=== PATIENT | female | born 1940 | race Caucasian/White ===

== ENCOUNTER 2016-12-30 08:02 | Day surgery (SDC) | payer MEDICARE, BC ==
[2016-12-28 08:58] VITALS: BMI 39.1
[~2016-12-30 08:02] MED LIST: LACTATED RINGERS 1,000 ML IV SCH
[2016-12-30] MEDS ORDERED: LIDOCAINE 1% 20 ML VIAL (10MG/ML) FOR IV START SQ ONE (08:20)
[2016-12-30 08:21] VITALS: RESP 16; TEMP 98
[2016-12-30] MEDS ORDERED: PROPOFOL 10 MG/ML 20 ML VIAL IV ONE (09:26)
[2016-12-30] MEDS ORDERED: LIDOCAINE 1% INJ 10MG/ML (20 ML MDV) ONE (09:26)
--- NOTE | 2016-12-30 10:01 | P.PCN ---
Date of Procedure: 12/30/16 Procedure(s) Performed: Procedure: Esophagogastroduodenoscopy and biopsy and esophageal dilation using the Microvasive jddgwbt-qkd-pykse balloon dilator up to 15 mm. Preoperative diagnosis: Dysphagia and abnormal barium swallow. Postoperative diagnosis: 1. Hiatal hernia and benign-appearing nonobstructing stricture dilated to 15 mm. 2. Mild antral gastritis. 3. Multiple biopsies obtained from the duodenum, antrum and esophagus. Preparation and sedation: Was provided by anesthesia. Brief clinical history: The patient is a 76-year-old female with intermittent difficulties swallowing that she had had for the last year or 2. Apparently it was worse over the last 3-4 months. She had a barium study and ENT evaluation as well as speech therapy evaluation. I saw her in the office referred because of finding of mild fixed narrowing at the GE junction. She has no weight loss or other alarm symptoms. This evaluation is to assess for esophageal stricture or other pathology. Procedure: With the patient on her left lateral decubitus position and after informed consent and adequate sedation, I passed the Olympus-GIF 160 video upper endoscope through the cricopharyngeus down the esophagus. GE junction was around 36 cm from the incisors and at the level there was a short benign appearing stricture that did not impede advancement of the endoscope. There was a 2 cm sliding hiatal hernia then the endoscope was passed into the stomach which was insufflated with air and inspected in detail including the retroflex view in the cardia. There was mottling and erythema in the antrum but no ulcers or erosions. Pyloric channel, duodenal bulb, post bulbar area and descending duodenum appeared within normal limits. Because of her symptoms I obtained biopsies from the duodenum, antrum and esophagus. I also proceeded to dilate the esophageal stricture. I passed the Microvasive blyevde-uvi-rmczq balloon dilator size 12-15 mm through the operating channel of the endoscope and centered dictated at the level of the stricture and inflated it in a stepwise fashion. It appeared that at 15 mm we accomplished satisfactory dilation. The patient tolerated the procedure well. Plan: The patient was reassured. Will await pathology results. Consideration can be given for further dilation if she continues to be symptomatic and especially if there is nutritional compromise. I would keep you updated on her progress.
[2016-12-30 10:35] VITALS: BP 140/76; PULSE 60
== END 2016-12-30 10:47 | disposition home or self-care (01) ==
LOC: ORWHC2ENDO 08:02
DX: K22.2 Esophageal obstruction (principal); R13.10 Dysphagia, unspecified; K44.9 Diaphragmatic hernia without obstruction or gangrene; K29.50 Unspecified chronic gastritis without bleeding; K21.0 Gastro-esophageal reflux disease with esophagitis; I10 Essential (primary) hypertension; J44.9 Chronic obstructive pulmonary disease, unspecified; E07.9 Disorder of thyroid, unspecified; H40.9 Unspecified glaucoma; Z79.82 Long term (current) use of aspirin; Z79.899 Other long term (current) drug therapy
CPT/HCPCS: 88305; 88342; 43239; 43249; J2001; J2704; C1726; 99153

== ENCOUNTER → 2017-10-06 | Outpatient (CLI) | payer MEDICARE, BC ==
--- NOTE | 2017-10-10 10:13 | MM ---
Reason for exam: screening (asymptomatic). Last mammogram was performed 1 year ago. History: Patient is postmenopausal. Family history of breast cancer in maternal aunt at age 75 and breast cancer in paternal cousin at age 50. Took estrogen for 10 years. Physical Findings: A clinical breast exam by your physician is recommended on an annual basis and results should be correlated with mammographic findings. MG 3D Screening Mammo W/Cad Bilateral CC, MLO, and XCCL view(s) were taken. Prior study comparison: October 05, 2016, bilateral MG screening mammo w CAD. August 21, 2015, bilateral MG screening mammo w CAD. There are scattered fibroglandular densities. No significant changes when compared with prior studies. ASSESSMENT: Benign, BI-RAD 2 RECOMMENDATION: Routine screening mammogram of both breasts in 1 year.
== END | disposition home or self-care (01) ==
LOC: RADMAMWWP 08:51
PROVIDERS: ATTEND Family Medicine
DX: Z12.31 Encounter for screening mammogram for malignant neoplasm of breast (principal)
CPT/HCPCS: 77063; G0202

== ENCOUNTER → 2018-05-18 | Outpatient (CLI) | payer MEDICARE, BC ==
--- NOTE | 2018-05-18 11:19 | XR ---
EXAMINATION TYPE: XR lumbar spine 2 or 3V DATE OF EXAM: 05/18/2018 COMPARISON: NONE HISTORY: Sciatica TECHNIQUE: Three-view lumbar spine FINDINGS: There 5 lumbar-type vertebral bodies. L1 pedicles are intact. L2 pedicles appear intact. Th ere is poor visualization of the right L3 pedicle which may be positional due to the scoliosis. L4 pe dicles appear intact. L5 pedicles are not well visualized. There is degenerative disc changes throughout the lumbar spine. Vacuum disc phenomenon is present L2- L3 L3-L4. Disc space narrowing is present throughout the lumbar spine. Mild superior endplate changes L1 may be present. Anterior vertebral body height loss is not evident. There is increased sclerosis at the scoliosis along the right L2-L3 space. IMPRESSION: 1. Moderately advanced degenerative disc changes throughout the lumbar spine. 2. Scoliosis. 3. MRI could be performed if closer evaluation would be of benefit.
== END | disposition home or self-care (01) ==
LOC: RADXRMAIN 10:34
PROVIDERS: ATTEND Family Medicine
DX: M47.816 Spondylosis without myelopathy or radiculopathy, lumbar region (principal); M41.86 Other forms of scoliosis, lumbar region
CPT/HCPCS: 72100

== ENCOUNTER → 2018-06-13 | Outpatient (CLI) | payer BC, MEDICARE ==
--- NOTE | 2018-06-13 10:18 | MR ---
EXAMINATION TYPE: MR lumbar spine wo con DATE OF EXAM: 06/13/2018 COMPARISON: Plain film 05/18/2018 HISTORY: Intervertebral disc degeneration, lumbar TECHNIQUE: Multiplanar, multisequence images of the lumbar spine were acquired. L1-L2: Posterior broad-based disc bulge causes anterior mass effect on the thecal sac, mild spinal st enosis. No significant foraminal encroachment. There is facet arthropathy change. L2-L3: Posterior br oad-based disc bulge causes anterior mass effect on the thecal sac. There is facet arthropathy change present. Circumferential extension of endplate disc complex results in foraminal encroachment greate r on the right. On mild spinal stenosis. L3-L4: Posterior broad-based disc bulge causes anterior mass effect on the thecal sac but only mild s peggy stenosis. Facet arthropathy with fragility ligamentum flavum encroaches on the lateral recesses . Circumferential extension endplate disc complex results in some foraminal encroachment greater on t he left than on the right. L4-L5: Small posterior central disc bulge contacts anterior thecal sac and possibly the proximal L5 n erve roots. Only mild spinal stenosis. Facet arthropathy with fragility ligamentum flavum flavum encroaches on the lateral recesses. Lateral extension endplate disc complex results in foraminal encroachment on the left. Cortical cysts are as sociated with the kidneys. Retroaortic left renal vein is noted. L5-S1: Posterior extension of endplate disc complex extends circumferentially encroach on the neural foramina greater on the left than on the right, there is facet arthropathy. No significant spinal ruth nosis. Lumbar segments are intact. No paraspinal masses are identified. Conus medullaris has a normal appe arance. There is a spinal curvature. Multilevel spondylosis is present with endplate discogenic marro w signal change, there is loss of disc height signal at intervertebral levels with associated vacuum phenomenon. IMPRESSION: Scoliosis, degenerative disc disease, facet arthropathy and multilevel foraminal encroachment. Additi onal findings above.
== END | disposition home or self-care (01) ==
LOC: RADMRIMAIN 09:13
PROVIDERS: ATTEND Family Medicine
DX: M48.061 Spinal stenosis, lumbar region without neurogenic claudication (principal); M51.26 Other intervertebral disc displacement, lumbar region; M51.36 Other intervertebral disc degeneration, lumbar region; M47.816 Spondylosis without myelopathy or radiculopathy, lumbar region; M46.86 Other specified inflammatory spondylopathies, lumbar region; M41.86 Other forms of scoliosis, lumbar region
CPT/HCPCS: 72148

== ENCOUNTER → 2018-10-10 | Outpatient (CLI) | payer MEDICARE ==
--- NOTE | 2018-10-12 10:36 | MM ---
Reason for exam: screening (asymptomatic). Last mammogram was performed 1 year ago. History: Patient is postmenopausal. Family history of breast cancer in maternal aunt at age 75 and breast cancer in paternal cousin at age 50. Took estrogen for 10 years. MG 3D Screening Mammo W/Cad Bilateral CC and MLO view(s) were taken. Prior study comparison: October 06, 2017, bilateral MG 3d screening mammo w/cad. October 05, 2016, bilateral MG screening mammo w CAD. There is a density with calcifications in the left breast equal oval margins in the lower outer middle position approximatly 7 cm from the nipple. Finding is new when compared to: 10/06/17 images. ASSESSMENT: Incomplete: need additional imaging evaluation, BI-RAD 0 RECOMMENDATION: Special view mammogram of the left breast.
== END | disposition home or self-care (01) ==
LOC: RADMAMWWP 13:17
PROVIDERS: ATTEND Family Medicine
DX: Z12.31 Encounter for screening mammogram for malignant neoplasm of breast (principal)
CPT/HCPCS: 77063; 77067

== ENCOUNTER → 2018-11-17 | Outpatient (CLI) | payer MEDICARE ==
--- NOTE | 2018-11-23 09:04 | MM ---
Reason for exam: additional evaluation requested from abnormal screening. Last mammogram was performed 1 month ago. History: Patient is postmenopausal. Family history of breast cancer in maternal aunt at age 75 and breast cancer in paternal cousin at age 50. Took estrogen for 10 years. Physical Findings: Nurse did not find any significant physical abnormalities on exam. MG 3D Work Up W/Cad LT CC with magnification, LM with magnification, and LM view(s) were taken of the left breast. Prior study comparison: October 10, 2018, bilateral MG 3d screening mammo w/cad. October 06, 2017, bilateral MG 3d screening mammo w/cad. The breast tissue is heterogeneously dense. This may lower the sensitivity of mammography. There is a round circumscribed lower outer quadrant mass 7cm from nipple with punctate rounded calcifications on CC that appear to layer on ML magnification view. Confirmation ultrasound will be performed. These results were verbally communicated with the patient and result sheet given to the patient on 11/17/18. ASSESSMENT: Incomplete: need additional imaging evaluation, BI-RAD 0 RECOMMENDATION: Ultrasound of the left breast.
--- NOTE | 2018-11-23 09:09 | USB ---
Reason for exam: additional evaluation requested from abnormal screening. History: Patient is postmenopausal. Family history of breast cancer in maternal aunt at age 75 and breast cancer in paternal cousin at age 50. Took estrogen for 10 years. US Breast Workup Limited LT Left limited breast ultrasound including focal area of concern, retroareolar and axilla demonstrates a 0.7 x 0.5 x 0.4cm solid, hyperechoic lesion at 3 o'clock, lipoma incidentally seen. These results were verbally communicated with the patient and result sheet given to the patient on 11/17/18. ASSESSMENT: Probably benign, BI-RAD 3 RECOMMENDATION: Follow-up diagnostic mammogram of the left breast in 6 months. (likely cyst with milk of calcium)
== END | disposition home or self-care (01) ==
LOC: RADMAMWWP 13:23
PROVIDERS: ATTEND Family Medicine
DX: R92.8 Other abnormal and inconclusive findings on diagnostic imaging of breast (principal)
CPT/HCPCS: 77065; 76642; G0279; 77061

== ENCOUNTER → 2018-12-14 | Outpatient (CLI) | payer MEDICARE ==
--- NOTE | 2018-12-14 14:02 | BD ---
EXAMINATION TYPE: Axial Bone Density DATE OF EXAM: 12/14/2018 COMPARISON: 10.05.2016 CLINICAL HISTORY: 78 YR OLD FEMALE....ICD-10 CODE: V49.81 POST MENOPAUSAL STATUS Height: 65.4 Weight: 258 FRAX RISK QUESTIONS: Secondary Osteoporosis: YES 3. Menopause before 45: YES, AT AGE 45 RISK FACTORS HISTORY OF: Postmenopausal woman: TOTAL HYST AT AGE 45 YRS MEDICATIONS: Thyroid Medications: YES, SYNTHROID FOR ABOUT 30 + YRS Additional Medications: BP MEDS, DULOXETINE, MULTIVITAMIN, STATIN FOR CHOLESTEROL, REFLUX MEDS Additional History: HYPERTENSION, ANXIETY, CHOLESTEROL, GURD EXAM MEASUREMENTS: Bone mineral densitometry was performed using the Prol[employer] Software System. Bone mineral density as measured about the Lumbar spine is: ----- L1-L4(G/cm2): 1.560 T Score Values are as follows: ----- L1: 1.4 ----- L2: 3.8 ----- L3: 5.3 ----- L4: 1.8 ----- L1-L4: 3.2 Bone mineral density has: Increased 8.0% since study of: 10.05.2016 Bone mineral density about the R hip (g/cm2): 1.025 Bone mineral density about the L hip (g/cm2): 0.939 T Score values are as follows: -----R Neck: 0.2 -----L Neck: -1.0 -----R Total: 0.1 -----L Total: -0.5 Bone mineral density has: Increased 3.8% since study of: 10.05.2016 FRAX%s: THERE IS A 9.3% CHANCE FOR A MAJOR OSTEOPOROTIC FX AND A 1.5% FOR HIP....PROBABILITY OF FX IN 10 YRS TIME IMPRESSION: Osteopenia (T Score between -2.5 and -1). There is slightly increased risk of fracture and the patient may be considered for treatment. Re-Screen 2-5 years. NOTE: T-SCORE=SD OF THE YOUNG ADULT MEAN.
== END | disposition home or self-care (01) ==
LOC: RADBDWWP 10:23
PROVIDERS: ATTEND Family Medicine
DX: M85.80 Other specified disorders of bone density and structure, unspecified site (principal); Z78.0 Asymptomatic menopausal state
CPT/HCPCS: 77080

== ENCOUNTER → 2019-01-03 | Outpatient (CLI) | payer MEDICARE ==
--- NOTE | 2019-01-03 17:42 | CT ---
EXAMINATION TYPE: CT abdomen pelvis w con DATE OF EXAM: 01/03/2019 COMPARISON: None INDICATION: Change in bowel habits. DLP: 1880.4 mGycm, Automated exposure control for dose reduction was used. CONTRAST: 100ml mL of Isovue 300. Study performed with Oral Contrast TECHNIQUE: Axial images were obtained from above the diaphragm to the pubic rami in the axial plane a t 5 mm thick sections. Reconstructed images are reviewed on the computer in the coronal plane. FINDINGS: Limited CT sections are obtained the lung bases. The lung bases are clear. CT ABDOMEN: Liver: Normal Spleen: Normal Pancreas: Normal Adrenal glands: The adrenal glands are normal. Gallbladder: Surgically absent Kidneys: No masses are evident. No hydronephrosis is present. Small cortical renal cysts are presen t within the bilateral kidneys. Delayed images were obtained through the kidneys, which remain unrem arkable. Aorta: Normal Inferior vena cava: Normal. CT PELVIS: Loops of bowel within the abdomen and pelvis are normal. There are loops of bowel which are incom pletely distended or lack oral contrast limiting their evaluation. Scattered diverticuli without acut e diverticulitis are within the sigmoid colon. Appendix: Not visualized. No suspicious inflammatory changes are identified in the right lower quadra nt. Urinary bladder: Decompressed and cannot be evaluated Genitourinary structures: Uterus and ovaries are not identified. Osseous structures: No suspicious lytic or sclerotic lesions. Sacroiliac joint degenerative changes a re present. Some spondylosis is within the lumbar thoracic spine. IMPRESSIONS: 1. No acute abnormality to account for change in bowel habits. 2. Diverticulosis without acute diverticulitis.
== END | disposition home or self-care (01) ==
LOC: RADCTMAIN 13:24
DX: K57.90 Diverticulosis of intestine, part unspecified, without perforation or abscess without bleeding (principal)
CPT/HCPCS: 82565; 84520; 74177; 36415; Q9967

== ENCOUNTER → 2019-01-18 | Outpatient (CLI) | payer MEDICARE ==
[2019-01-18 15:47] VITALS: BP 141/76; PULSE 61; RESP 18; TEMP 97.6; BMI 41.1
--- NOTE | 2019-01-18 16:16 | P.GSHP ---
History of Present Illness H&P Date: 01/18/19 Chief Complaint: abnormal mammogram Annmarie is a 78-year-old white female who underwent a routine mammogram on 10-12-18. After this study was recommended that she undergo a additional views of the left breast secondary to a density with calcifications in the left blast the repeat left breast mammogram was performed 1220 118. This revealed a round circumscribed lower outer quadrant mass 7 cm from the nipple and punctate rounded calcifications that appear to layer on the ML mag view. An ultrasound was therefore recommended and the ultrasound was performed on 1220 118 as well. On the ultrasound was felt to be a probable benign BIRADS 3 lesion and follow-up diagnostic mammogram of the left breast in 6 months time was recommended. The patient does not feel anything of concern in her breasts. She denies any nipple discharge or skin changes of concern. She has no history of any trauma or infection in the past. Family history: 1. Maternal aunt: Breast cancer 2. Father: Lung cancer 3. 3 paternal uncles: Prostate cancer Hormonal History: menarche: 11 : 3, 3 children, fiirst at 22, breast fed: yes menopause: hysterctomy at 45 for fibroidstook ovaries BCP: none hormones: patch 4 years Past surgical history: 1. Total abdominal hysterectomy 2. Cholecystectomy 3. Toe surgery Past medical history: 1.diverticulosis 2. IBS Social History: smoke: none at this time smoked for 10 years 1/PPD in the past alcohol: none drugs: none - Constitutional Constitutional: Denies chills, Denies fever - EENT Comment: glaucoma Eyes: denies blurred vision, denies pain Ears: deny: decreased hearing, tinnitus Ears, nose, mouth and throat: Denies headache, Denies sore throat - Breasts Breasts: bilateral: as per HPI - Cardiovascular Comment: ? valvular change not need treatment Cardiovascular: Reports high blood pressure - Respiratory Comment: COPD Respiratory: Denies cough, Denies 7 - Gastrointestinal Comment: IBS Gastrointestinal: Reports constipation, Reports diarrhea, Denies abdominal pain , Denies nausea, Denies vomiting - Genitourinary (Female) Genitourinary: Denies dysuria, Denies hematuria - Menstruation Menstruation: Reports postmenopausal - Musculoskeletal Comment: arthritis in back - Integumentary Integumentary: Denies pruritus, Denies rash - Neurological Neurological: Reports weakness, Denies numbness - Psychiatric Psychiatric: Reports anxiety, Reports depression - Endocrine Endocrine: Denies fatigue, Denies weight change - Hematologic/Lymphatic Comment: aspirin - Allergic/Immunologic Allergic/Immunologic: Reports as per HPI Past Medical History Past Medical History: COPD, GERD/Reflux, Hyperlipidemia, Hypertension, Osteoarthritis (OA), Thyroid Disorder Additional Past Medical History / Comment(s): GLAUCOMA History of Any Multi-Drug Resistant Organisms: None Reported Past Surgical History: Cholecystectomy, Hysterectomy Past Anesthesia/Blood Transfusion Reactions: No Reported Reaction Past Psychological History: Anxiety, Depression Smoking Status: Former smoker Past Alcohol Use History: None Reported Additional Past Alcohol Use History / Comment(s): STARTED SMOKING AT AGE 20 QUIT 1996 SMOKED 1PPD Past Drug Use History: None Reported - Past Family History Mother Family Medical History: Deep Vein Thrombosis (DVT) Father Family Medical History: Cancer Medications and Allergies Home Medications Medication Instructions Recorded Confirmed Type Aspirin 81 mg PO DAILY 12/09/16 01/18/19 History Atorvastatin [Lipitor] 20 mg PO HS 12/09/16 01/18/19 History DULoxetine HCL [Cymbalta] 30 mg PO DAILY 12/09/16 01/18/19 History Gabapentin [Neurontin] 300 mg PO TID 12/09/16 01/18/19 History Levothyroxine Sodium [Synthroid] 88 mcg PO DAILY 12/09/16 01/18/19 History Losartan Potassium [Cozaar] 100 mg PO DAILY 12/09/16 01/18/19 History Omeprazole [PriLOSEC] 40 mg PO DAILY 12/09/16 01/18/19 History Rivastigmine Tartrate 3 mg PO BID 12/09/16 01/18/19 History [Rivastigmine] Multivit with Calcium,Iron,Min 1 each PO DAILY 12/28/16 01/18/19 History [Women's Multivitamin] Allergies Allergy/AdvReac Type Severity Reaction Status Date / Time nickel Allergy Rash/Hives Verified 01/18/19 15:31 Surgical - Exam Vital Signs Temp Pulse Resp BP Pulse Ox 97.6 F 61 18 141/76 96 01/18/19 15:39 01/18/19 15:39 01/18/19 15:39 01/18/19 15:39 01/18/19 15:39 BMI 41.2 - General obese - Eyes normal ocular movement - ENT no hearing loss, no congestion - Neck no masses, trachea midline - Respiratory normal respiratory effort, clear to auscultation - Cardiovascular Rhythm: regular Heart Sounds: normal: S1, S2 - Abdomen Abdomen: soft, non tender, no guarding, no rigid, no rebound - Integumentary normal turgor - Musculoskeletal normal gait, normal posture - Psychiatric oriented to time, oriented to person, oriented to place, speech is normal, memory intact Breast examination: Right breast: Multi-positional exam no dominant masses or nodules of concern, fibrocystic changes Right axilla: No adenopathy of concern Left breast: Multi-positional exam no dominant masses or nodules of concern, fibrocystic changes Left axilla: No adenopathy of concern Results Results of mammogram, repeat left breast diagnostic mammogram, and left breast ultrasound reviewed Assessment and Plan Assessment: Impression: 1. Fibrocystic breast changes 2. Radiographic abnormality left breast, calcifications on mammogram 3. Probable lipoma on ultrasound. Repeat radiographs in 6 months 4. Obesity 5. Irritable bowel syndrome 6. Anxiety/depression Plan: 1. Repeat left breast mammogram and ultrasound in 6 months 2. Medical management of medical conditions [place] risk assessment evaluation was performed. 5 uterus is 1.7% of developing breast cancer lifetime risk is 3.3%. Cc: Dr. Issac Andrade, Kateryna Isaac
== END | disposition home or self-care (01) ==
LOC: WWCWWP 14:52
PROVIDERS: ATTEND Surgery
DX: Z53.9 Procedure and treatment not carried out, unspecified reason (principal)

== ENCOUNTER → 2019-05-15 | Outpatient (CLI) | payer MEDICARE ==
[~2019-05-15] MED LIST changes: -LACTATED RINGERS 1,000 ML IV SCH; +REGADENOSON 0.4 MG/5 ML SYRINGE IV ONE
--- NOTE | 2019-05-15 12:23 | NM ---
"EXAMINATION TYPE: NM stress lexiscan cardiolite DATE OF EXAM: 05/15/2019 COMPARISON: NONE HISTORY: Chest pain and hypertension TECHNIQUE: After the intravenous administration of 10.14 mCi Tc 99m Sestamibi - Cardiolite resting S PECT images acquired 45 minutes post injection. The patient received 0.4mg Lexiscan, 25.5 mCi Tc 99m Sestamibi - Stress images obtained [address] injection FINDINGS: Review of stress and rest SPECT images demonstrates mild decreased radio pharmaceutical uptake along the anteroapical left ventricle on stress as compared to rest images. Gated analysis shows normal wal l motion with an estimated left ventricular ejection fraction of 61 %. IMPRESSION: Pharmacologically induced left ventricular myocardial ischemia. A Yellow level critical message alert has been initiated for Issac Andrade MD via the [employer] 0 | Critical Results System on 05/15/2019 12:20 PM. This message alert has been sent to Issac Andrade MD via the preferences provided by the clinician for the receipt of Radiology Critical Findings. Oh ssage ID [id number]."
--- NOTE | 2019-05-15 13:34 | EST ---
EXERCISE STRESS DATE OF SERVICE: 05/15/2019 AGE: 78 SEX: Female HT: 5'6-/2" WT: 250 pounds PROTOCOL: Lexiscan Cardiolite STAGE: DURATION OF EXERCISE: HEART RATE REST: 57 BLOOD PRESSURE REST: 140/79 MAXIMUM HEART RATE ACHIEVED: 86 MAXIMUM BLOOD PRESSURE: 163/88 85% MPHR: 122 100% MPHR: 143 METS: INDICATIONS: Chest pain. CLINICAL INFORMATION: Baseline rhythm is sinus mechanism, rate 57, normal axis and intervals. Normal electrocardiogram. Rare PVCs were noted. Baseline blood pressure 140/79 mmHg. Patient received an injection of Lexiscan. Electrocardiograph monitoring revealed no evidence of diagnostic ischemic ST deviation. Cardiolite was injected per protocol. CONCLUSION: 1. Nondiagnostic electrocardiograph stress testing. 2. Nuclear images will be reported separately. MMODL / IJN: [id number] /
== END | disposition home or self-care (01) ==
LOC: RADNMMAIN 07:54
PROVIDERS: ATTEND Family Medicine
DX: I25.9 Chronic ischemic heart disease, unspecified (principal)
CPT/HCPCS: 93017; 78452; A9500; J2785

== ENCOUNTER 2019-05-28 01:09 | Emergency (ER) | payer MEDICARE ==
[2019-05-28 01:14] VITALS: TEMP 98.6
[2019-05-28] MEDS ORDERED: SODIUM CHLORIDE 0.9% 1,000 ML IV STA (01:28)
[2019-05-28] MEDS ORDERED: ASPIRIN 81 MG PO STA (01:28)
--- NOTE | 2019-05-28 01:31 | ED ---
General Adult HPI - General Chief complaint: Neuro Symptoms/Deficit Stated complaint: Left Arm Pain Time Seen by Provider: 05/28/19 01:22 Source: patient Mode of arrival: ambulatory Limitations: no limitations - History of Present Illness Initial comments: Annmarie is a very pleasant 78-year-old female with a past medical history of known degenerative disc disease who presents the emergency department today for evaluation of tingling pain in her left shoulder radiating down to her left pinky finger. Patient reports she is recently began following with a material worker and is scheduled to have an outpatient stress test. She states that throughout the day today she saw some tightness in her neck and tingling down her left shoulder into her left pinky fingers. She cannot identify any exacerbating or relieving factors. This discomfort has been present throughout the day today. She's not had any chest pain, chest pressure or shortness of breath. Patient reports that she went to bed tonight she began thinking about it became concerned that perhaps left shoulder pain or arm pain could actually be related to the heart she decided to come to the ER for evaluation. Patient has no known history of coronary artery disease or heart failure. Her symptoms are not exertional are not relieved with rest. - Related Data Home Medications Medication Instructions Recorded Confirmed Aspirin 81 mg PO DAILY 12/09/16 01/18/19 Atorvastatin [Lipitor] 20 mg PO HS 12/09/16 01/18/19 DULoxetine HCL [Cymbalta] 30 mg PO DAILY 12/09/16 01/18/19 Gabapentin [Neurontin] 300 mg PO TID 12/09/16 01/18/19 Levothyroxine Sodium [Synthroid] 88 mcg PO DAILY 12/09/16 01/18/19 Losartan Potassium [Cozaar] 100 mg PO DAILY 12/09/16 01/18/19 Omeprazole [PriLOSEC] 40 mg PO DAILY 12/09/16 01/18/19 Rivastigmine Tartrate 3 mg PO BID 12/09/16 01/18/19 [Rivastigmine] Multivit with Calcium,Iron,Min 1 each PO DAILY 12/28/16 01/18/19 [Women's Multivitamin] Allergies Allergy/AdvReac Type Severity Reaction Status Date / Time nickel Allergy Rash/Hives Verified 01/18/19 15:31 Review of Systems ROS Statement: Those systems with pertinent positive or pertinent negative responses have been documented in the HPI. ROS Other: All systems not noted in ROS Statement are negative. Past Medical History Past Medical History: COPD, GERD/Reflux, Hyperlipidemia, Hypertension, Osteoar thritis (OA), Thyroid Disorder Additional Past Medical History / Comment(s): GLAUCOMA History of Any Multi-Drug Resistant Organisms: None Reported Past Surgical History: Cholecystectomy, Hysterectomy Past Anesthesia/Blood Transfusion Reactions: No Reported Reaction Past Psychological History: Anxiety, Depression Smoking Status: Former smoker Past Alcohol Use History: None Reported Past Drug Use History: None Reported - Past Family History Mother Family Medical History: Deep Vein Thrombosis (DVT) Father Family Medical History: Cancer General Exam - General Exam Comments Initial Comments: Physical Exam GENERAL: Patient is well-developed and well-nourished. Patient is nontoxic and well- hydrated and is in no distress. HENT: Normocephalic, Atraumatic. EYES: PERRL, EOMI PULMONARY: Unlabored respirations. No audible rales rhonchi or wheezing was noted. CARDIOVASCULAR: There is a regular rate and rhythm without any murmurs gallops or rubs. ABDOMEN: Soft and nontender with normal bowel sounds. SKIN: Skin is clear with no lesions or rashes and otherwise unremarkable. : Deferred NEUROLOGIC: Patient is alert and oriented x3. Moving all extremities spontaneously CN II-XII grossly intact NIH 0 Normal strength of bilateral upper and lower extremities MUSCULOSKELETAL: Normal extremities with adequate strength and full range of motion. No lower extremity swelling or edema. No calf tenderness. PSYCHIATRIC: Situational anxiety Limitations: no limitations Course Vital Signs 05/28/19 05/28/19 05/28/19 01:10 01:49 01:50 Temperature 98.6 F Pulse Rate 57 L 54 L Respiratory 18 21 18 Rate Blood Pressure 141/68 O2 Sat by Pulse 97 92 L 90 L Oximetry 05/28/19 05/28/19 05/28/19 02:00 02:10 02:20 Temperature Pulse Rate 49 L 51 L Respiratory 20 18 Rate Blood Pressure 145/55 O2 Sat by Pulse 94 L 93 L Oximetry 05/28/19 05/28/19 05/28/19 02:30 02:40 02:50 Temperature Pulse Rate 50 L 51 L 50 L Respiratory 14 26 H 16 Rate Blood Pressure O2 Sat by Pulse 94 L 94 L 94 L Oximetry 0705/28/19 05/28/19 03:00 03:10 03:20 Temperature Pulse Rate 49 L 52 L 50 L Respiratory 10 L 15 21 Rate Blood Pressure 89/74 89/74 O2 Sat by Pulse 94 L 94 L 94 L Oximetry 05/28/19 05/28/19 05/28/19 03:30 03:40 03:50 Temperature Pulse Rate 50 L 49 L 51 L Respiratory 18 14 16 Rate Blood Pressure 89/74 89/74 89/74 O2 Sat by Pulse 93 L 94 L 94 L Oximetry 05/28/19 05/28/19 04:00 04:14 Temperature Pulse Rate 54 L 80 Respiratory 16 16 Rate Blood Pressure 128/76 128/76 O2 Sat by Pulse 95 100 Oximetry EKG Findings - EKG Comments: EKG Findings:: EKG was obtained due to complaint of chest pain, EKG was obtained at 1:45 AM, rate is 53 rhythm is sinus bradycardia, there is leftward axis there are prolonged VT with a VT of 218, QRS 92, QTc is [address] elevations or depressions no evidence of acute ischemia or infarction. Medical Decision Making - Medical Decision Making The patient was seen and evaluated upon arrival the emergency department A 78-year-old female who presents with tingling down her left arm is been present all day. Patient does have a history of degenerative disc disease in the neck but has never experienced and neuropathy in the past Patient is concerned because she is scheduled to have outpatient cardiac testing is concerned that this may be related to her heart She was nonischemic Labs are unremarkable troponin was negative considering that symptoms of been persistent for greater than 12 hours and troponin remains negative I do not feel this is cardiac in nature Have a very high suspicion the patient's degenerative disc disease and chronic arthritis in her neck is causing some spurring and neuropathy. Advised patient to follow up with her primary care physician or surgeon. All questions pertaining care were answered return parameters were discussed patient was discharged home in stable condition - Lab Data Result diagrams: 05/28/19 01:56 05/28/19 01:56 Lab Results 05/28/19 05/28/19 05/28/19 Range/Units 01:56 01:56 01:56 WBC 6.7 (3.8-10.6) k/uL RBC 3.91 (3.80-5.40) m/uL Hgb 12.2 (11.4-16.0) gm/dL Hct 36.0 (34.0-46.0) % MCV 91.9 (80.0-100.0) fL MCH 31.3 (25.0-35.0) pg MCHC 34.0 (31.0-37.0) g/dL RDW 12.8 (11.5-15.5) % Plt Count 234 (150-450) k/uL Neutrophils % 42 % Lymphocytes % 40 % Monocytes % 5 % Eosinophils % 8 % Basophils % 1 % Neutrophils # 2.9 (1.3-7.7) k/uL Lymphocytes # 2.7 (1.0-4.8) k/uL Monocytes # 0.4 (0-1.0) k/uL Eosinophils # 0.5 (0-0.7) k/uL Basophils # 0.1 (0-0.2) k/uL PT 9.4 (9.0-12.0) sec INR 0.9 (<1.2) APTT 25.9 (22.0-30.0) sec Sodium 138 (137-145) mmol/L Potassium 3.7 (3.5-5.1) mmol/L Chloride 103 (98-107) mmol/L Carbon Dioxide 27 (22-30) mmol/L Anion Gap 8 mmol/L BUN 19 H (7-17) mg/dL Creatinine 0.92 (0.52-1.04) mg/dL Est GFR (CKD-EPI)AfAm 70 (>60 ml/min/1.73 sqM) Est GFR (CKD-EPI)NonAf 60 (>60 ml/min/1.73 sqM) Glucose 126 H (74-99) mg/dL Calcium 9.0 (8.4-10.2) mg/dL Magnesium 1.9 (1.6-2.3) mg/dL Total Bilirubin 0.3 (0.2-1.3) mg/dL AST 21 (14-36) U/L ALT 17 (9-52) U/L Alkaline Phosphatase 84 (38-126) U/L Troponin I (0.000-0.034) ng/mL Total Protein 6.5 (6.3-8.2) g/dL Albumin 3.5 (3.5-5.0) g/dL 05/28/19 Range/Units 01:56 WBC (3.8-10.6) k/uL RBC (3.80-5.40) m/uL Hgb (11.4-16.0) gm/dL Hct (34.0-46.0) % MCV (80.0-100.0) fL MCH (25.0-35.0) pg MCHC (31.0-37.0) g/dL RDW (11.5-15.5) % Plt Count (150-450) k/uL Neutrophils % % Lymphocytes % % Monocytes % % Eosinophils % % Basophils % % Neutrophils # (1.3-7.7) k/uL Lymphocytes # (1.0-4.8) k/uL Monocytes # (0-1.0) k/uL Eosinophils # (0-0.7) k/uL Basophils # (0-0.2) k/uL PT (9.0-12.0) sec INR (<1.2) APTT (22.0-30.0) sec Sodium (137-145) mmol/L Potassium (3.5-5.1) mmol/L Chloride (98-107) mmol/L Carbon Dioxide (22-30) mmol/L Anion Gap mmol/L BUN (7-17) mg/dL Creatinine (0.52-1.04) mg/dL Est GFR (CKD-EPI)AfAm (>60 ml/min/1.73 sqM) Est GFR (CKD-EPI)NonAf (>60 ml/min/1.73 sqM) Glucose (74-99) mg/dL Calcium (8.4-10.2) mg/dL Magnesium (1.6-2.3) mg/dL Total Bilirubin (0.2-1.3) mg/dL AST (14-36) U/L ALT (9-52) U/L Alkaline Phosphatase (38-126) U/L Troponin I <0.012 (0.000-0.034) ng/mL Total Protein (6.3-8.2) g/dL Albumin (3.5-5.0) g/dL Disposition Clinical Impression: Peripheral neuropathy Disposition: HOME SELF-CARE Condition: Stable Instructions (If sedation given, give patient instructions): Arthritis (ED) Is patient prescribed a controlled substance at d/c from ED?: No Referrals: Issac Andrade MD [Primary Care Provider] - 1-2 days
[2019-05-28 02:38] LABS: Basophils # (A) 0.1 k/uL (0-0.2); Basophils % (A) 1 %; Eosinophils # (A) 0.5 k/uL (0-0.7); Eosinophils % (A) 8 %; HGB 12.2 gm/dL (11.4-16.0); Lymphocytes # (A) 2.7 k/uL (1.0-4.8); Lymphocytes % (A) 40 %; MCH 31.3 pg (25.0-35.0); MCV 91.9 fL (80.0-100.0); Mean Platelet Volume 6.8; Monocytes # (A) 0.4 k/uL (0-1.0); Monocytes % (A) 5 %; Neutrophils # (A) 2.9 k/uL (1.3-7.7); Neutrophils % (A) 42 %; Platelet Count 234 k/uL (150-450); RBC 3.91 m/uL (3.80-5.40); RDW 12.8 % (11.5-15.5); WBC 6.7 k/uL (3.8-10.6)
--- NOTE | 2019-05-28 02:41 | XR ---
EXAM: XR Chest, 2 Views CLINICAL HISTORY: Chest Pain TECHNIQUE: Frontal and lateral views of the chest. COMPARISON: 07/08/2016 FINDINGS: Lungs: Density in the left lung base is favored to represent atelectasis. Pleural space: Unremarkable. No pneumothorax. Heart: Unremarkable. No cardiomegaly. Mediastinum: Unremarkable. Bones/joints: No acute osseous abnormality. Vasculature: Tortuosity and/or ectasia of the thoracic aorta. Tubes, lines and devices: Telemetry leads overlie the patient. IMPRESSION: Mild left basilar atelectasis.
--- NOTE | 2019-05-28 02:47 | XR ---
EXAM: XR Cervical Spine, 4 or 5 Views CLINICAL HISTORY: XR Reason: Pain TECHNIQUE: Frontal, lateral and oblique views of the cervical spine. COMPARISON: MRI 07/04/2015 FINDINGS: Vertebrae: Unremarkable. No acute fracture. Normal alignment. Disc spaces: Advanced multilevel degenerative changes. Soft tissues: Unremarkable. IMPRESSION: Advanced multilevel degenerative changes. No acute osseous abnormality.
[2019-05-28 02:48] LABS: INR 0.9 (<1.2); Partial Thromboplastin Time 25.9 sec (22.0-30.0); Prothrombin Time 9.4 sec (9.0-12.0)
[2019-05-28 03:20] LABS: Albumin 3.5 g/dL (3.5-5.0); Magnesium 1.9 mg/dL (1.6-2.3); Potassium 3.7 mmol/L (3.5-5.1); Total Bilirubin 0.3 mg/dL (0.2-1.3); Total Protein 6.5 g/dL (6.3-8.2)
[2019-05-28 04:10] VITALS: BP 128/76; RESP 16
[2019-05-28 04:16] VITALS: PULSE 80
== END 2019-05-28 04:15 | disposition home or self-care (01) ==
LOC: EC 01:09
DX: G62.9 Polyneuropathy, unspecified (principal); K21.9 Gastro-esophageal reflux disease without esophagitis; E78.5 Hyperlipidemia, unspecified; I10 Essential (primary) hypertension; M19.90 Unspecified osteoarthritis, unspecified site; F41.9 Anxiety disorder, unspecified; F32.9 Major depressive disorder, single episode, unspecified; E07.9 Disorder of thyroid, unspecified; Z87.891 Personal history of nicotine dependence; Z79.890 Hormone replacement therapy; Z79.899 Other long term (current) drug therapy; Z79.82 Long term (current) use of aspirin; Z91.048 Other nonmedicinal substance allergy status; Z87.898 Personal history of other specified conditions
CPT/HCPCS: 36415; 71046; 72040; 80053; 83735; 84484; 85025; 85610; 85730; 93005; 96360; 96361; 99284

== ENCOUNTER → 2020-01-17 | Outpatient (CLI) | payer MEDICARE ==
--- NOTE | 2020-01-17 13:56 | MM ---
Reason for exam: additional evaluation requested from prior study. Last mammogram was performed 1 year and 2 months ago. History: Patient is postmenopausal. Family history of breast cancer in maternal aunt at age 75 and breast cancer in paternal cousin at age 50. Took estrogen for 10 years. Physical Findings: Nurse did not find any significant physical abnormalities on exam. MG 3D Diag Mammo W/Cad MARTÍN Bilateral CC, MLO, and XCCL view(s) were taken. Spot compression MLO and LM view(s) were taken of the left breast. Prior study comparison: November 17, 2018, left breast MG 3d work up w/cad LT. October 10, 2018, bilateral MG 3d screening mammo w/cad. There are scattered fibroglandular densities. Nodular asymmetry superior anterior left breast there is an adjacent triangular density which was present on prior exams and likely persists on the spot 3D MLO view. The questioned adjacent density seems to resolve. Precautionary 6 month follow up recommended. These results were verbally communicated with the patient and result sheet given to the patient on 01/17/20. ASSESSMENT: Probably benign, BI-RAD 3 RECOMMENDATION: Follow-up diagnostic mammogram of the left breast in 6 months.
== END | disposition home or self-care (01) ==
LOC: RADMAMWWP 12:59
PROVIDERS: ATTEND Surgery
DX: R92.8 Other abnormal and inconclusive findings on diagnostic imaging of breast (principal)
CPT/HCPCS: 77066; G0279; 77062

== ENCOUNTER → 2021-03-11 | Outpatient (CLI) | payer MEDICARE | END | disposition home or self-care (01) | LOC: LABWHC1 15:23 | PROVIDERS: ATTEND Family Medicine | DX: U07.1 COVID-19 (principal) | CPT/HCPCS: U0003; C9803 ==

== ENCOUNTER 2021-03-12 12:57 | Emergency (ER) | payer MEDICARE ==
--- NOTE | 2021-03-12 13:11 | ED ---
General Adult HPI - General Stated complaint: Sent by PCP - BAM, Covid + Time Seen by Provider: 03/12/21 13:08 Source: patient, RN notes reviewed Mode of arrival: ambulatory Limitations: no limitations - History of Present Illness Initial comments: This a 79 presents emergency Department chief complaint of positive Covid, sent by PCP for monoclonal antibodies. Patient states that she started symptoms proximal one week ago tested positive yesterday. Patient has slight cough, nausea. No reported fever at home. Patient ALLERGY reported his nickel. Patient offers no other complaints. - Related Data Home Medications Medication Instructions Recorded Confirmed Aspirin 81 mg PO DAILY 12/09/16 01/18/19 Atorvastatin [Lipitor] 20 mg PO HS 12/09/16 01/18/19 DULoxetine HCL [Cymbalta] 30 mg PO DAILY 12/09/16 01/18/19 Gabapentin [Neurontin] 300 mg PO TID 12/09/16 01/18/19 Levothyroxine Sodium [Synthroid] 88 mcg PO DAILY 12/09/16 01/18/19 Losartan Potassium [Cozaar] 100 mg PO DAILY 12/09/16 01/18/19 Omeprazole [PriLOSEC] 40 mg PO DAILY 12/09/16 01/18/19 Rivastigmine Tartrate 3 mg PO BID 12/09/16 01/18/19 [Rivastigmine] Multivit with Calcium,Iron,Min 1 each PO DAILY 12/28/16 01/18/19 [Women's Multivitamin] Allergies Allergy/AdvReac Type Severity Reaction Status Date / Time nickel Allergy Rash/Hives Verified 01/18/19 15:31 Review of Systems ROS Statement: Those systems with pertinent positive or pertinent negative responses have been documented in the HPI. ROS Other: All systems not noted in ROS Statement are negative. Past Medical History Past Medical History: COPD, GERD/Reflux, Hyperlipidemia, Hypertension, Osteoarthritis (OA), Thyroid Disorder Additional Past Medical History / Comment(s): GLAUCOMA History of Any Multi-Drug Resistant Organisms: None Reported Past Surgical History: Cholecystectomy, Hysterectomy Past Anesthesia/Blood Transfusion Reactions: No Reported Reaction Past Psychological History: Anxiety, Depression Past Alcohol Use History: None Reported Past Drug Use History: None Reported - Past Family History Mother Family Medical History: Deep Vein Thrombosis (DVT) Father Family Medical History: Cancer General Exam General appearance: alert, in no apparent distress Head exam: Present: atraumatic, normocephalic, normal inspection Eye exam: Present: normal appearance, PERRL, EOMI. Absent: scleral icterus, conjunctival injection, periorbital swelling ENT exam: Present: normal exam, normal oropharynx, mucous membranes moist, TM's normal bilaterally Neck exam: Present: normal inspection. Absent: tenderness, meningismus, lymphadenopathy Respiratory exam: Present: normal lung sounds bilaterally. Absent: respiratory distress, wheezes, rales, rhonchi, stridor Cardiovascular Exam: Present: regular rate, normal rhythm, normal heart sounds. Absent: systolic murmur, diastolic murmur, rubs, gallop, clicks Medical Decision Making - Medical Decision Making Patient was sent for monoclonal antibodies. Patient is positive for COVID-19. Disposition Clinical Impression: COVID-19 Disposition: HOME SELF-CARE Condition: Stable Instructions (If sedation given, give patient instructions): Coronavirus Disease 2019 (COVID-19) Additional Instructions: Please return to the Emergency Department if symptoms worsen or any other concerns. Is patient prescribed a controlled substance at d/c from ED?: No Referrals: Issac Andrade MD [Primary Care Provider] - 1-2 days Time of Disposition: 13:11
[2021-03-12 13:12] VITALS: BP 146/81; PULSE 56; RESP 18; TEMP 98.1
[2021-03-12] MEDS ORDERED: SODIUM CHLORIDE 0.9% 50 ML IVPB ONE (13:45)
[2021-03-12] MEDS ORDERED: BAMLANIVIMAB (EUA) 700 MG, ETESEVIMAB (EUA) 1,400 MG in SODIUM CHLORIDE 0.9% 50 ML IVPB ONE (13:45)
== END 2021-03-12 15:57 | disposition home or self-care (01) ==
LOC: EC 12:57
DX: U07.1 COVID-19 (principal); J44.9 Chronic obstructive pulmonary disease, unspecified; K21.9 Gastro-esophageal reflux disease without esophagitis; E78.5 Hyperlipidemia, unspecified; I10 Essential (primary) hypertension; M19.90 Unspecified osteoarthritis, unspecified site; E07.9 Disorder of thyroid, unspecified
CPT/HCPCS: 99283; 96365; Q0245

== ENCOUNTER → 2021-04-23 | Outpatient (CLI) | payer MEDICARE ==
--- NOTE | 2021-04-25 15:00 | ECHOF ---
Referral Reason:I77.810 thoracic aortic ectasia MEASUREMENTS -------- HEIGHT: 168.9 cm WEIGHT: 97.5 kg BP: 135/68 IVSd: 1.0 cm (0.6 - 1.1) LVIDd: 3.8 cm (3.9 - 5.3) LVPWd: 1.0 cm (0.6 - 1.1) EDV(Teich): 60 ml IVSs: 1.6 cm LVIDs: 2.5 cm LVPWs: 1.7 cm %IVS Thck: 60 % ESV(Teich): 22 ml EF(Teich): 63 % %FS: 33 % SV(Teich): 38 ml LA Diam: 3.6 cm (2.7 - 3.8) RVIDd: 3.3 cm (< 3.3) LALs A4C: 4.9 cm LAAs A4C: 18.8 cm LAESV A-L A4C: 61 ml LAESV MOD A4C: 54 ml LALs A2C: 5.4 cm LAAs A2C: 21.5 cm LAESV A-L A2C: 72 ml LAESV MOD A2C: 69 ml LAESV(A-L): 70 ml LAESV Index (A-L): 33.87 ml/m Ao Diam: 3.7 cm (2.0 - 3.7) AV Cusp: 2.1 cm (1.5 - 2.6) EPSS: 0.6 cm MV E [place]: 0.74 m/s MV DecT: 298 ms MV Dec [place]: 2.5 m/s MV A [place]: 0.84 m/s MV E/A Ratio: 0.88 MV PHT: 86 ms AV Vmax: 1.56 m/s AV maxP.73 mmHg TR Vmax: 2.15 m/s TR maxP.43 mmHg RAP: 5.00 mmHg RVSP: 23.43 mmHg MV EF SLOPE: 72.00 mm/s (70 - 150) MV EXCURSION: 17.90 mm (> 18.000) FINDINGS -------- Sinus rhythm. This was a technically good study. The left ventricular size is normal. Left ventricular wall thickness is normal. Overall left vent ricular systolic function is normal with, an EF between 60 - 65 %. The right ventricle is mildly enlarged. LA is moderately dilated 34-39 ml/m2 The right atrium is normal in size. Interatrial and interventricular septum intact. There is mild aortic valve sclerosis. The mitral valve leaflets are mildly thickened. Mild mitral annular calcification present. Mild tricuspid regurgitation present. Right ventricular systolic pressure is normal at < 35 mmHg. There is no pulmonic regurgitation present. The aortic root size is normal. Normal inferior vena cava with normal inspiratory collapse consistent with estimated right atrial pre ssure of 5 mmHg. There is no pericardial effusion. CONCLUSIONS -------- 1. The left ventricular size is normal. 2. Left ventricular wall thickness is normal. 3. Overall left ventricular systolic function is normal with, an EF between 60 - 65 %. 4. The right ventricle is mildly enlarged. 5. LA is moderately dilated 34-39 ml/m2 6. There is mild aortic valve sclerosis. 7. The mitral valve leaflets are mildly thickened. 8. Mild mitral annular calcification present. 9. Mild tricuspid regurgitation present. 10. There is no pericardial effusion. LOGISTIC MANAGER: Sybil Fernandez RDCS
== END | disposition home or self-care (01) ==
LOC: RADECHMAIN 14:38
PROVIDERS: ATTEND Family Medicine
DX: I08.3 Combined rheumatic disorders of mitral, aortic and tricuspid valves (principal)
CPT/HCPCS: 93306

== ENCOUNTER 2021-08-17 04:58 | Emergency (ER) | payer MEDICARE ==
[2021-08-17 05:03] VITALS: TEMP 97.5
[2021-08-17] MEDS ORDERED: MECLIZINE 12.5 MG TAB PO STA (05:31)
[2021-08-17 06:00] LABS: Basophils % (A) 1 %; Eosinophils # (A) 0.4 k/uL (0-0.7); Eosinophils % (A) 8 %; HCT 36.8 % (34.0-46.0); Lymphocytes # (A) 1.7 k/uL (1.0-4.8); Lymphocytes % (A) 32 %; MCH 33.3 pg (25.0-35.0); MCHC 35.3 g/dL (31.0-37.0); MCV 94.3 fL (80.0-100.0); Mean Platelet Volume 7.2; Monocytes # (A) 0.3 k/uL (0-1.0); Monocytes % (A) 6 %; Neutrophils # (A) 2.6 k/uL (1.3-7.7); Neutrophils % (A) 50 %; Platelet Count 247 k/uL (150-450); RDW 12.4 % (11.5-15.5); WBC 5.2 k/uL (3.8-10.6)
--- NOTE | 2021-08-17 06:12 | XR ---
EXAMINATION TYPE: XR chest 1V portable DATE OF EXAM: 08/17/2021 COMPARISON: 05/28/2019 HISTORY: Weakness TECHNIQUE: FINDINGS: There is no heart failure nor confluent pneumonic infiltrate. Costophrenic angles are clear . There are chest leads. Thoracic aorta is atheromatous. IMPRESSION: No active cardiopulmonary disease. There is clearing of the minimal pleural reaction left lung base compared to old exam.
[2021-08-17 06:17] LABS: Anion Gap 7 mmol/L; Blood Urea Nitrogen 21 mg/dL (7-17); Carbon Dioxide 25 mmol/L (22-30); Chloride 103 mmol/L (98-107); Glucose 104 mg/dL (74-99); Sodium 135 mmol/L (137-145)
[2021-08-17 06:18] LABS: ALT 23 U/L (4-34); African American GFR (CKD) >90 (>60 ml/min/1.73 sqM); Albumin 3.7 g/dL (3.5-5.0); Calcium 9.1 mg/dL (8.4-10.2); Non-African American GFR(CKD) 83 (>60 ml/min/1.73 sqM); Total Bilirubin 0.7 mg/dL (0.2-1.3); Total Protein 6.7 g/dL (6.3-8.2)
[2021-08-17 06:24] LABS: AST 33 U/L (14-36); Alkaline Phosphatase 65 U/L (38-126); Potassium 4.1 mmol/L (3.5-5.1)
--- NOTE | 2021-08-17 06:25 | ED ---
Dizziness HPI - General Chief Complaint: Dizziness Stated Complaint: dizziness Time Seen by Provider: 08/17/21 05:18 Source: patient Mode of arrival: wheelchair - History of Present Illness MD Complaint: dizziness -: hour(s) Timing: sudden onset, awoke with symptoms Description: "room spinning", difficulty walking, nausea History of Same: No History of Trauma: No Severity: severe Improves With: remaining still Worsens With: position Associated Symptoms: denies other symptoms - Related Data Home Medications Medication Instructions Recorded Confirmed Aspirin 81 mg PO DAILY 12/09/16 01/18/19 Atorvastatin [Lipitor] 20 mg PO HS 12/09/16 01/18/19 DULoxetine HCL [Cymbalta] 30 mg PO DAILY 12/09/16 01/18/19 Gabapentin [Neurontin] 300 mg PO TID 12/09/16 01/18/19 Levothyroxine Sodium [Synthroid] 88 mcg PO DAILY 12/09/16 01/18/19 Losartan Potassium [Cozaar] 100 mg PO DAILY 12/09/16 01/18/19 Omeprazole [PriLOSEC] 40 mg PO DAILY 12/09/16 01/18/19 Rivastigmine Tartrate 3 mg PO BID 12/09/16 01/18/19 [Rivastigmine] Multivit with Calcium,Iron,Min 1 each PO DAILY 12/28/16 01/18/19 [Women's Multivitamin] Previous Rx's Medication Instructions Recorded Meclizine [Antivert] 25 mg PO TID PRN #15 tab 08/17/21 Allergies Allergy/AdvReac Type Severity Reaction Status Date / Time nickel Allergy Rash/Hives Verified 08/17/21 05:03 Review of Systems ROS Statement: Those systems with pertinent positive or pertinent negative responses have been documented in the HPI. ROS Other: All systems not noted in ROS Statement are negative. Constitutional: Denies: fever, chills, weakness Eyes: Denies: vision change ENT: Denies: ear pain, hearing loss Respiratory: Denies: cough, dyspnea Cardiovascular: Denies: chest pain, palpitations, orthopnea, edema, syncope Gastrointestinal: Reports: nausea. Denies: abdominal pain, vomiting, diarrhea Genitourinary: Denies: dysuria, hematuria Musculoskeletal: Reports: back pain Skin: Reports: rash Neurological: Reports: headache. Denies: weakness, numbness, paresthesias Past Medical History Past Medical History: COPD, GERD/Reflux, Hyperlipidemia, Hypertension, Osteoarthritis (OA), Thyroid Disorder Additional Past Medical History / Comment(s): GLAUCOMA History of Any Multi-Drug Resistant Organisms: None Reported Past Surgical History: Cholecystectomy, Hysterectomy Past Anesthesia/Blood Transfusion Reactions: No Reported Reaction Past Psychological History: Anxiety, Depression Smoking Status: Never smoker Past Alcohol Use History: None Reported Past Drug Use History: None Reported - Past Family History Mother Family Medical History: Deep Vein Thrombosis (DVT) Father Family Medical History: Cancer General Exam General appearance: alert, in no apparent distress Head exam: Present: atraumatic, normocephalic Eye exam: Present: normal appearance. Absent: scleral icterus, conjunctival injection ENT exam: Present: normal oropharynx Neck exam: Present: normal inspection Respiratory exam: Present: normal lung sounds bilaterally. Absent: respiratory distress, wheezes, rales, rhonchi, stridor Cardiovascular Exam: Present: regular rate, normal rhythm, normal heart sounds. Absent: systolic murmur, diastolic murmur, rubs, gallop GI/Abdominal exam: Present: soft. Absent: distended, tenderness, guarding, rebound, rigid, mass Extremities exam: Present: normal inspection, normal capillary refill. Absent: pedal edema, calf tenderness Back exam: Present: normal inspection. Absent: CVA tenderness (R), CVA tenderness (L) Neurological exam: Present: alert, oriented X3, CN II-XII intact. Absent: motor sensory deficit Skin exam: Present: warm, dry, intact, normal color. Absent: rash Course Vital Signs 08/17/21 08/17/21 08/17/21 05:00 05:30 06:00 Temperature 97.5 F L Pulse Rate 58 L 50 L 51 L Respiratory 18 17 18 Rate Blood Pressure 156/90 149/88 149/73 O2 Sat by Pulse 98 98 95 Oximetry 08/17/21 08/17/21 06:48 07:19 Temperature Pulse Rate 51 L 53 L Respiratory 18 18 Rate Blood Pressure 160/69 153/77 O2 Sat by Pulse 98 95 Oximetry EKG Findings - EKG Results: EKG: interpreted by ERMD, sinus rhythm (Rate 52 bpm), normal axis, normal QRS, normal ST/T - Blocks, [place], Hypertrophy, ST Abn: AV and intraventricular conduction: 1 AV block Medical Decision Making - Lab Data Result diagrams: 08/17/21 05:29 08/17/21 05:29 Lab Results 08/17/21 08/17/21 08/17/21 Range/Units 05:29 05:29 05:29 WBC 5.2 (3.8-10.6) k/uL RBC 3.90 (3.80-5.40) m/uL Hgb 13.0 (11.4-16.0) gm/dL Hct 36.8 (34.0-46.0) % MCV 94.3 (80.0-100.0) fL MCH 33.3 (25.0-35.0) pg MCHC 35.3 (31.0-37.0) g/dL RDW 12.4 (11.5-15.5) % Plt Count 247 (150-450) k/uL MPV 7.2 Neutrophils % 50 % Lymphocytes % 32 % Monocytes % 6 % Eosinophils % 8 % Basophils % 1 % Neutrophils # 2.6 (1.3-7.7) k/uL Lymphocytes # 1.7 (1.0-4.8) k/uL Monocytes # 0.3 (0-1.0) k/uL Eosinophils # 0.4 (0-0.7) k/uL Basophils # 0.0 (0-0.2) k/uL Sodium 135 L (137-145) mmol/L Potassium 4.1 (3.5-5.1) mmol/L Chloride 103 (98-107) mmol/L Carbon Dioxide 25 (22-30) mmol/L Anion Gap 7 mmol/L BUN 21 H (7-17) mg/dL Creatinine 0.67 (0.52-1.04) mg/dL Est GFR (CKD-EPI)AfAm >90 (>60 ml/min/1.73 sqM) Est GFR (CKD-EPI)NonAf 83 (>60 ml/min/1.73 sqM) Glucose 104 H (74-99) mg/dL Calcium 9.1 (8.4-10.2) mg/dL Total Bilirubin 0.7 (0.2-1.3) mg/dL AST 33 (14-36) U/L ALT 23 (4-34) U/L Alkaline Phosphatase 65 (38-126) U/L Troponin I (0.000-0.034) ng/mL Total Protein 6.7 (6.3-8.2) g/dL Albumin 3.7 (3.5-5.0) g/dL Urine Color Yellow Urine Appearance Clear (Clear) Urine pH 5.5 (5.0-8.0) Ur Specific [place] 1.020 (1.001-1.035) Urine Protein Negative (Negative) Urine Glucose (UA) Negative (Negative) Urine Ketones Negative (Negative) Urine Blood Negative (Negative) Urine Nitrite Negative (Negative) Urine Bilirubin Negative (Negative) Urine Urobilinogen <2.0 (<2.0) mg/dL Ur Leukocyte Esterase Negative (Negative) 08/17/21 Range/Units 05:29 WBC (3.8-10.6) k/uL RBC (3.80-5.40) m/uL Hgb (11.4-16.0) gm/dL Hct (34.0-46.0) % MCV (80.0-100.0) fL MCH (25.0-35.0) pg MCHC (31.0-37.0) g/dL RDW (11.5-15.5) % Plt Count (150-450) k/uL MPV Neutrophils % % Lymphocytes % % Monocytes % % Eosinophils % % Basophils % % Neutrophils # (1.3-7.7) k/uL Lymphocytes # (1.0-4.8) k/uL Monocytes # (0-1.0) k/uL Eosinophils # (0-0.7) k/uL Basophils # (0-0.2) k/uL Sodium (137-145) mmol/L Potassium (3.5-5.1) mmol/L Chloride (98-107) mmol/L Carbon Dioxide (22-30) mmol/L Anion Gap mmol/L BUN (7-17) mg/dL Creatinine (0.52-1.04) mg/dL Est GFR (CKD-EPI)AfAm (>60 ml/min/1.73 sqM) Est GFR (CKD-EPI)NonAf (>60 ml/min/1.73 sqM) Glucose (74-99) mg/dL Calcium (8.4-10.2) mg/dL Total Bilirubin (0.2-1.3) mg/dL AST (14-36) U/L ALT (4-34) U/L Alkaline Phosphatase (38-126) U/L Troponin I <0.012 (0.000-0.034) ng/mL Total Protein (6.3-8.2) g/dL Albumin (3.5-5.0) g/dL Urine Color Urine Appearance (Clear) Urine pH (5.0-8.0) Ur Specific [place] (1.001-1.035) Urine Protein (Negative) Urine Glucose (UA) (Negative) Urine Ketones (Negative) Urine Blood (Negative) Urine Nitrite (Negative) Urine Bilirubin (Negative) Urine Urobilinogen (<2.0) mg/dL Ur Leukocyte Esterase (Negative) Disposition Clinical Impression: Vertigo Condition: Good Instructions (If sedation given, give patient instructions): Vertigo (ED) Prescriptions: Meclizine [Antivert] 25 mg PO TID PRN #15 tab PRN Reason: Vertigo Is patient prescribed a controlled substance at d/c from ED?: No Referrals: Issac Andrade MD [Primary Care Provider] - 1-2 days
[2021-08-17 06:53] VITALS: RESP 18
[2021-08-17 07:02] LABS: Appearance,Urine Clear (Clear); Bilirubin,Urine Negative (Negative); Blood,Urine Negative (Negative); Color,Urine Yellow; Glucose,Urine (UA) Negative (Negative); Ketones,Urine Negative (Negative); Leukocyte Esterase,Urine Negative (Negative); Nitrite,Urine Negative (Negative); PH, Urine 5.5 (5.0-8.0); Protein,Urine Negative (Negative); Urobilinogen,Urine <2.0 mg/dL (<2.0)
[2021-08-17 07:20] VITALS: BP 153/77; PULSE 53
== END 2021-08-17 07:40 ==
LOC: EC 04:58
DX: R42 Dizziness and giddiness (principal); I10 Essential (primary) hypertension; E78.5 Hyperlipidemia, unspecified; K21.9 Gastro-esophageal reflux disease without esophagitis; J44.9 Chronic obstructive pulmonary disease, unspecified; M19.90 Unspecified osteoarthritis, unspecified site; E07.9 Disorder of thyroid, unspecified; F41.9 Anxiety disorder, unspecified; F32.9 Major depressive disorder, single episode, unspecified; Z90.49 Acquired absence of other specified parts of digestive tract; Z79.82 Long term (current) use of aspirin; Z90.710 Acquired absence of both cervix and uterus
CPT/HCPCS: 36415; 71045; 80053; 81003; 84484; 85025; 93005; 99284

== ENCOUNTER → 2022-02-23 | Outpatient (CLI) | payer MEDICARE ==
--- NOTE | 2022-02-23 16:05 | BD ---
EXAMINATION TYPE: Axial Bone Density DATE OF EXAM: 02/23/2022 COMPARISON: 12/14/2018 CLINICAL HISTORY: 81 years year old Female. ICD-10 CODE: Z78.0 Asymptomatic menopausal status Height: 65.5 IN Weight: 203 LBS FRAX RISK QUESTIONS: Secondary Osteoporosis: 3. Menopause before 45: TOTAL HYST AGE 43 RISK FACTORS HISTORY OF: Active: YES Postmenopausal woman: TOTAL HYST AGE 46 Take estrogen and/or progesterone medications: NOT NOW How long: ERT FOR 1 YEAR AFTER HYSTERECTOMY Lost more than 2 inches in height since high school: YES 11/29" MEDICATIONS: Thyroid Medications: YES Which medication: Synthroid How Lon+ YEARS Additional Medications: VIT D, SYNTHROID, DEPRESSION MEDS, ZINC, BLOOD PRESSURE MEDS, CHOLESTEROL MED S, BABY ASPIRIN, EXAM MEASUREMENTS: Bone mineral densitometry was performed using the [employer] System. Bone mineral density as measured about the Lumbar spine is: ----- L1-L4(G/cm2): 1.465 T Score Values are as follows: ----- L1: 0.7 ----- L2: 3.0 ----- L3: 4.0 ----- L4: 2.0 ----- L1-L4: 2.4 Bone mineral density has: Decreased -5.4% since study of: 12/14/2018 Bone mineral density about the R hip (g/cm2): 0.943 Bone mineral density about the L hip (g/cm2): 0.894 T Score values are as follows: -----R Neck: -0.7 -----L Neck: -1.0 -----R Total: -0.7 -----L Total: -1.2 Bone mineral density has: Decreased -9.3% since study of: 12/14/2018 FRAX%s: The graph provided illustrates a 11.2 chance for a major osteoporotic fx and a 2.2 chance for the hips probability for fx in 10 years time. IMPRESSION: Normal (Values between +1 and -1 indicate normal bone mass). Consider repeating this study in 5 year s or sooner if there is some new clinical indication. NOTE: T-SCORE=SD OF THE YOUNG ADULT MEAN.
--- NOTE | 2022-02-25 09:35 | MM ---
Reason for exam: screening (asymptomatic). Last mammogram was performed 2 years and 1 month ago. History: Patient is postmenopausal. Family history of breast cancer in maternal aunt at age 75 and breast cancer in paternal cousin at age 50. Took estrogen for 10 years. Physical Findings: A clinical breast exam by your physician is recommended on an annual basis and results should be correlated with mammographic findings. MG 3D Screening Mammo W/Cad Bilateral CC and MLO view(s) were taken. Prior study comparison: January 17, 2020, bilateral MG 3d diag mammo w/cad [facility]. November 17, 2018, left breast MG 3d work up w/cad [facility]. No significant changes when compared with prior studies. ASSESSMENT: Benign, BI-RAD 2 RECOMMENDATION: Routine screening mammogram of both breasts in 1 year.
== END | disposition home or self-care (01) ==
LOC: RADMAMWWP 09:52
PROVIDERS: ATTEND Family Medicine
DX: Z12.31 Encounter for screening mammogram for malignant neoplasm of breast (principal); Z78.0 Asymptomatic menopausal state; Z80.3 Family history of malignant neoplasm of breast
CPT/HCPCS: 77063; 77067; 77080

== ENCOUNTER → 2022-07-28 | Outpatient (CLI) | payer MEDICARE ==
--- NOTE | 2022-07-28 10:57 | XR ---
EXAMINATION TYPE: XR chest 2V DATE OF EXAM: 07/28/2022 COMPARISON: 08/17/2021 INDICATION: Congestion TECHNIQUE: Frontal and lateral views of the chest are obtained. FINDINGS: The heart size is normal. The pulmonary vasculature is normal. The lungs are clear. Scoliosis of the thoracic spine. Spondylosis is present. IMPRESSION: 1. No acute pulmonary process.
== END | disposition home or self-care (01) ==
LOC: RADXRMAIN 10:25
PROVIDERS: ATTEND Family Medicine
DX: R09.89 Other specified symptoms and signs involving the circulatory and respiratory systems (principal)
CPT/HCPCS: 71046

== ENCOUNTER → 2023-04-18 | Outpatient (CLI) | payer MEDICARE ==
--- NOTE | 2023-04-18 14:12 | MM ---
Reason for Exam: Additional evaluation requested from abnormal screening. Last screening mammogram was performed less than 1 month ago. Patient History: Menarche at age 11. First Full-Term at age 21. Left ovary removed at age 43. Right ovary removed at age 43. Hysterectomy at age 43. Postmenopausal. Patient has history of breast feeding. Patient used Estrogen for 10 years. Paternal cousin had breast cancer, age 50. Maternal aunt had breast cancer, age 75. Risk Values: [place] 5 year model risk: 1.6%. NCI Lifetime model risk: 2.3%. Prior Study Comparison: 10/10/2018 Bilateral Screening Mammogram, [facility]. 02/23/2022 Bilateral Screening Mammogram, [facility]. 03/31/2023 Bilateral MG 3D screening mammo w/cad, [facility]. Tissue Density: Right: There are scattered fibroglandular densities. Findings: Analyzed By CAD. Subareolar focal asymmetry incompletely disperses on spot 3-D MLO view. Further ultrasound evaluation is recommended. Overall Assessment: Incomplete: need additional imaging evaluation, BI-RAD 0 Management: Diagnostic Breast Ultrasound of the right breast. Subareolar and periareolar. Electronically signed and approved by: Fidel Holder M.D. Radiologist
--- NOTE | 2023-04-18 14:40 | USB ---
Reason for Exam: Additional evaluation requested from abnormal screening. Patient History: Menarche at age 11. First Full-Term at age 21. Left ovary removed at age 43. Right ovary removed at age 43. Hysterectomy at age 43. Postmenopausal. Patient has history of breast feeding. Patient used Estrogen for 10 years. Paternal cousin had breast cancer, age 50. Maternal aunt had breast cancer, age 75. Risk Values: [place] 5 year model risk: 1.6%. NCI Lifetime model risk: 2.3%. Technique: Method: Targeted. Prior Study Comparison: 01/17/2020 Bilateral Diagnostic Mammogram, [facility]. 02/23/2022 Bilateral Screening Mammogram, [facility]. 03/31/2023 Bilateral MG 3D screening mammo w/cad, [facility]. Findings: The periareolar of the right breast, the axilla of the right breast and the retroareolar of the right breast were scanned. Targeted ultrasound subareolar and periareolar right breast. Additional scanning of the axilla. No solid or cystic lesion. No duct ectasia or axillary lymphadenopathy. Overall Assessment: Probably benign, BI-RAD 3 Management: Diagnostic Mammogram of the right breast in 6 months. A clinical breast exam by your physician is recommended on an annual basis and results should be correlated with mammographic findings. This exam should not preclude additional follow-up of suspicious palpable abnormalities. Results were given to the patient verbally at the time of exam. Electronically signed and approved by: Fidel Holder M.D. Radiologist
== END | disposition home or self-care (01) ==
LOC: RADMAMWWP 13:33
PROVIDERS: ATTEND Family Medicine
DX: R92.8 Other abnormal and inconclusive findings on diagnostic imaging of breast (principal); Z78.0 Asymptomatic menopausal state; Z80.3 Family history of malignant neoplasm of breast
CPT/HCPCS: 77065; 76642; G0279; 77061

== ENCOUNTER → 2023-10-12 | Outpatient (CLI) | payer MEDICARE ==
--- NOTE | 2023-10-12 12:56 | MM ---
Reason for Exam: Additional evaluation requested from abnormal screening. Last screening mammogram was performed 6 month(s) ago. Patient History: Menarche at age 11. First Full-Term at age 21. Left ovary removed at age 43. Right ovary removed at age 43. Hysterectomy at age 43. Postmenopausal. Patient has history of breast feeding. Patient used Estrogen for 10 years. Paternal cousin had breast cancer, age 50. Maternal aunt had breast cancer, age 75. Risk Values: [place] 5 year model risk: 1.5%. NCI Lifetime model risk: 2.1%. Prior Study Comparison: 10/06/2017 Bilateral Screening Mammogram, [facility]. 10/10/2018 Bilateral Screening Mammogram, [facility]. 11/17/2018 Left Diagnostic Mammogram, [facility]. 01/17/2020 Bilateral Diagnostic Mammogram, [facility]. 02/23/2022 Bilateral Screening Mammogram, [facility]. 03/31/2023 Bilateral MG 3D screening mammo w/cad, [facility]. 04/18/2023 Right MG 3D work up w/cad RT, [facility]. Tissue Density: Right: There are scattered fibroglandular densities. Findings: Analyzed By CAD. Pattern appears stable. No persistent subareolar abnormal density is evident. Findings appear stable from the comparison No suspicious groups of microcalcifications, spiculated or lobular masses, architectural distortion or other secondary signs of malignancy are mammographically apparent. Overall Assessment: Benign, BI-RAD 2 Management: Screening Mammogram of both breasts in 6 months. A negative mammogram report should not preclude additional follow up of suspicious palpable abnormalities. Patient should continue monthly self breast exam. A clinical breast exam by your physician is recommended on an annual basis and results should be correlated with mammographic findings. Electronically signed and approved by: Niraj Henry D.O. Radiologis
== END | disposition home or self-care (01) ==
LOC: RADMAMWWP 12:11
PROVIDERS: ATTEND Family Medicine
DX: R92.331 Mammographic heterogeneous density, right breast (principal); R92.321 Mammographic fibroglandular density, right breast; Z78.0 Asymptomatic menopausal state; Z80.3 Family history of malignant neoplasm of breast
CPT/HCPCS: 77065; G0279; 77061

== ENCOUNTER → 2023-10-25 | Outpatient (CLI) | payer MEDICARE ==
--- NOTE | 2023-10-25 13:57 | XR ---
EXAMINATION TYPE: XR ribs bilat w pa chest xray DATE OF EXAM: 10/25/2023 COMPARISON: NONE HISTORY: Pain TECHNIQUE: Single view of the chest 8 views of the ribs are submitted. FINDINGS: The lungs are clear. No Evidence for pneumothorax. No evidence for focal contusion. Medi astinal structures are midline. Evaluation of the ribs fails to demonstrate evidence for displaced r ib fracture or secondary sign of rib fracture. IMPRESSION: Negative study
== END | disposition home or self-care (01) ==
LOC: RADXRMAIN 11:01
PROVIDERS: ATTEND Family Medicine
DX: R07.81 Pleurodynia (principal)
CPT/HCPCS: 71111

== ENCOUNTER → 2024-03-16 | Outpatient (CLI) | payer MEDICARE ==
[2024-03-16 12:07] LABS: African American GFR (CKD) 74 (>60 ml/min/1.73 sqM); Blood Urea Nitrogen 16 mg/dL (7-17); Non-African American GFR(CKD) 64 (>60 ml/min/1.73 sqM)
--- NOTE | 2024-03-16 13:47 | CT ---
EXAMINATION TYPE: CT abdomen pelvis w con DATE OF EXAM: 03/16/2024 COMPARISON: 01/03/2019 HISTORY: abdominal pain CT DLP: 1372 mGycm Automated exposure control for dose reduction was used. TECHNIQUE: Helical acquisition of images was performed from the lung bases through the pelvis. CONTRAST: Performed with Oral Contrast and with IV Contrast, patient injected with 100 mL of Isovue 300. FINDINGS: The lung bases are clear. There is surgical absence of the gallbladder. There is no biliary ductal dilatation. There is no focal mass or organomegaly involving the liver, pancreas, spleen or adrenal glands. There is no solid renal mass or hydronephrosis and there is homogeneous contrast enhancement of the r enal parenchyma. The caliber the abdominal aorta is normal is no retroperitoneal adenopathy or hemorr spua. The bowel loops are normal in caliber and there is no evidence of dilatation or obstruction. No infla mmatory changes are identified in the bowel wall or mesentery. There is moderate diverticulosis witho ut CT evidence of diverticulitis. There is no free intraperitoneal air or fluid. No pelvic mass, free fluid, abscess or adenopathy. There are surgical absence of the uterus. The osseous structures and soft tissues are intact. IMPRESSION: 1. No acute changes within the abdomen or pelvis. 2. Hysterectomy and cholecystectomy. 3. Moderate diverticulosis but no CT evidence of acute diverticulitis.
== END | disposition home or self-care (01) ==
LOC: RADCTMAIN 11:23
PROVIDERS: ATTEND Family Medicine
DX: K57.30 Diverticulosis of large intestine without perforation or abscess without bleeding (principal); K57.32 Diverticulitis of large intestine without perforation or abscess without bleeding; Z90.49 Acquired absence of other specified parts of digestive tract; Z90.710 Acquired absence of both cervix and uterus
CPT/HCPCS: 82565; 84520; 74177; 36415; Q9967

== ENCOUNTER → 2024-03-28 | Outpatient (CLI) | payer MEDICARE ==
--- NOTE | 2024-03-28 15:40 | XR ---
EXAMINATION TYPE: XR lumbosacral spine min 4V DATE OF EXAM: 03/28/2024 COMPARISON: None HISTORY: Interval disc degeneration TECHNIQUE: 5 view lumbar spine FINDINGS: There are 5 lumbar-type vertebral bodies. Scoliosis is present. Loss of disc height and vac uum disc phenomenon is present L1-2, L2-3, L3-4. Additional degenerative disc changes are present T12 -L1 and L4-5 L5-S1 no spondylolytic defect is evident IMPRESSION: 1. Scoliosis with degenerative disc changes
== END | disposition home or self-care (01) ==
LOC: RADXRMAIN 15:08
PROVIDERS: ATTEND Family Medicine
DX: M47.817 Spondylosis without myelopathy or radiculopathy, lumbosacral region (principal); M51.36 Other intervertebral disc degeneration, lumbar region; M41.9 Scoliosis, unspecified
CPT/HCPCS: 72110

== ENCOUNTER → 2024-05-23 | Outpatient (CLI) | payer MEDICARE ==
--- NOTE | 2024-05-23 13:47 | NM ---
EXAMINATION TYPE: NM bone scan whole body DATE OF EXAM: 05/23/2024 12:15 PM CLINICAL INDICATION:Female, 83 years old with history of M54.59 OTHER LOW BACK PAIN; COMPARISON: None TECHNIQUE: Intravenous administration 25.2 mCi Tc 99m MDP followed by multiple scintigraphic images o f the appendicular and axial skeleton. Images acquired 3.5 hours post injection. FINDINGS: No abnormal uptake is identified within the appendicular or axial skeleton to suggest metastatic dise ase. Abnormal uptake within the midthoracic back vertebral body around the level of T8. There is increased uptake within the bilateral shoulder, sternoclavicular, and sacroiliac joints con sistent with degenerative changes. No other photopenic areas or areas of increased activity are ident ified. Physiologic radiotracer activity is demonstrated in the kidneys and bladder. IMPRESSION: 1. Uptake within the mid thoracic back suggestive of compression fracture around T8. Correlate with M RI. 2. Nothing to suggest metastatic disease.
== END | disposition home or self-care (01) ==
LOC: RADNMMAIN 07:28
PROVIDERS: ATTEND Physical Medicine & Rehabilitation
DX: M48.062 Spinal stenosis, lumbar region with neurogenic claudication (principal); M47.817 Spondylosis without myelopathy or radiculopathy, lumbosacral region; M51.37 Other intervertebral disc degeneration, lumbosacral region
CPT/HCPCS: 78306; A9503

== ENCOUNTER → 2024-07-04 | Outpatient (CLI) | payer MEDICARE ==
--- NOTE | 2024-07-26 13:50 | MM ---
Reason for Exam: Screening (asymptomatic). Last mammogram was performed 1 year(s) and 3 month(s) ago. Patient History: Menarche at age 11. First Full-Term at age 21. Left ovary removed at age 43. Right ovary removed at age 43. Hysterectomy at age 43. Postmenopausal. Patient has history of breast feeding. Patient used Estrogen for 10 years. Paternal cousin had breast cancer, age 50. Maternal aunt had breast cancer, age 75. Risk Values: [place] 5 year model risk: 1.5%. NCI Lifetime model risk: 1.8%. Prior Study Comparison: 03/31/2023 Bilateral MG 3D screening mammo w/cad, [facility]. 04/18/2023 Right MG 3D work up w/cad RT, [facility]. 10/12/2023 Right MG 3D diag mammo w/cad RT, [facility]. Tissue Density: The breasts are heterogeneously dense, which may obscure small masses. Findings: Analyzed By CAD. Right breast: There is no suspicious group of microcalcifications or new suspicious mass. Left breast: There is no suspicious group of microcalcifications or new suspicious mass. Overall Assessment: Negative, BI-RAD 1 Management: Screening Mammogram of both breasts in [address] [facility] will attempt to contact patient to return for supplemental views and ultrasound if indicated. Patient should continue monthly self-breast exams. A clinical breast exam by your physician is recommended on an annual basis. This exam should not preclude additional follow-up of suspicious palpable abnormalities. Note on Selma scores and lifetime risk: 1. A Selma score greater than 3% is considered moderate risk. If this is the case, consider specialist referral to assess eligibility for a risk reducing agent. 2. If overall lifetime risk for the development of breast cancer is 20% or higher, the patient may qualify for future screening with alternating mammogram and breast MRI. Electronically signed and approved by: Kev Zazueta DO
== END | disposition home or self-care (01) ==
LOC: RADMAMWWP 12:00
PROVIDERS: ATTEND Family Medicine
DX: Z12.31 Encounter for screening mammogram for malignant neoplasm of breast
CPT/HCPCS: 77063; 77067

== ENCOUNTER → 2024-08-22 | Outpatient (CLI) | payer MEDICARE ==
--- NOTE | 2024-08-24 19:09 | BD ---
EXAMINATION TYPE: Axial Bone Density DATE OF EXAM: 08/22/2024 CLINICAL HISTORY: 84 years old Female. ICD-10 CODE: M48.50XA COLLAPSED VERTEBRA, NEC, SITE UNSP, INI T Height: 64 in Weight: 202 lbs FRAX RISK QUESTIONS: History of Fracture in Adulthood: thoracic fx age 84 Secondary Osteoporosis: 3. Menopause before 45: total hysterectomy age 43 RISK FACTORS HISTORY OF: Spine Fracture: thoracic spine fx age 84 MEDICATIONS: Thyroid Medications: Which medication: Levothyroxine How Lon+ years EXAM MEASUREMENTS: Bone mineral densitometry was performed using the [employer] System. Bone mineral density as measured about the Lumbar spine is: ----- L1-L4(G/cm2): 1.416 T Score Values are as follows: ----- L1: 0.0 ----- L2: 1.3 ----- L3: 3.2 ----- L4: 3.1 ----- L1-L4: 2.0 Z Score Values are as follows: ----- L1: 1.0 ----- L2: 2.3 ----- L3: 4.2 ----- L4: 4.1 ----- L1-L4: 3.0 Bone mineral density has: Decreased -3.3% since study of: 02/23/2022 Bone mineral density about the R hip (g/cm2): 0.888 Bone mineral density about the L hip (g/cm2): 0.807 T Score values are as follows: -----R Neck: -0.7 -----L Neck: -1.3 -----R Total: -1.0 -----L Total: -1.6 Z Score values are as follows: -----R Neck: 1.1 -----L Neck: 0.4 -----R Total: 0.6 -----L Total: -0.1 Bone mineral density has: Decreased -4.9% since study of: 02/23/2022 FRAX%s: The graph provided illustrates a 17.0% chance for a major osteoporotic fx and a 3.6% chance f or the hips probability for fx in 10 years time. IMPRESSION: Normal (Values between +1 and -1 indicate normal bone mass). Consider repeating this study in 5 year s or sooner if there is some new clinical indication. NOTE: T-SCORE=SD OF THE YOUNG ADULT MEAN. [facility], , 08/24/2024 7:07 PM
== END | disposition home or self-care (01) ==
LOC: RADBDWWP 14:43
PROVIDERS: ATTEND Family Medicine
DX: M48.50XA Collapsed vertebra, not elsewhere classified, site unspecified, initial encounter for fracture
CPT/HCPCS: 77080